=== PATIENT | male | born 1940 | race Caucasian/White ===

== ENCOUNTER 2016-08-13 11:28 | Emergency (ER) | payer MEDICARE ==
[~2016-08-13] VITALS: Ht 180.3 cm; Wt 95.5 kg
[~2016-08-13 11:28] MED LIST: CITA10TA9 PO; LISI-567 PO; OXYC-465 PO; PANT40TA3 PO; TEST200V IM
[2016-08-13 11:36] VITALS: BP 155/91; PULSE 88; RESP 16; O2SAT 98
--- NOTE | 2016-08-13 11:42 | ED.REPORT ---
HPI-Abd Pain M 40 and Over Date of Service Aug 13, 2016 ED Provider: History of Present Illness: abd pain for 3 to 4 days. today has a swelling on left side of abd. feels like gas pain. no fever. no nausea or vomiting, eating ok, had to do enema for a stool movemnt today and the last few days. primary care is lulu Antunez. 08/28 Nursing Notes Stated Complaint: ABDOMINAL PAIN Chief Complaint: Male Abdominal Pain Nursing Notes Reviewed: Yes Allergies: Coded Allergies: meperidine (Verified Allergy, Unknown, 04/09/16) Scheduled Citalopram (Citalopram) 10 Mg Tablet 10 MG PO DAILY Lisinopril (Lisinopril) 20 Mg Tablet 10 MG PO BID Pantoprazole DR (Pantoprazole DR) 40 Mg Tablet.dr 20 MG PO DAILY Testosterone Cypionate (Depo-Testosterone) 200 Mg/1 Ml Depoinj 200 MG IM [id number] Scheduled PRN oxyCODONE-Acetaminophen 7.5-325 mg (oxyCODONE-Acetaminophen 7.5-325 mg) 1 Each Tablet 1 TAB PO Q4H PRN PRN For Pain General Time Seen by MD: 11:41 Chief Complaint Abdominal pain Hx Obtained From: Patient Sudden in Onset?: No Symptom Duration: Since onset Past Medical History Past Medical History Reports: Hypertension, Denies: Asthma, Diabetes mellitus Past Surgical History denies Smoking History Former Smoker (quit 40 years ago) Social History Alcohol Use: 3-5 per day Drug Use: Denies drug use Occupation lives by self in a 1 story house Review of Systems Basic Review of Systems Eyes: Vision NL, No discharge Skin: No bruising, No rash, No itch Psychiatric: Normal thought content Physical Exam Initial Vital Signs Vital Signs (First) Date Time Temp Pulse Resp B/P Pulse Ox O2 Delivery O2 Flow Rate FiO2 08/13/16 11:36 36.5 88 16 155/91 98 Room Air Initial VS: Reviewed, Vital signs normal Head / Eyes: Atraumatic, Normocephalic, PERRL ENT: Mucous membranes moist, Conjunctiva normal, No scleral icterus Neck: Supple, Non-tender, Full range of motion Lymphatic: No lymphadenopathy Extremities: Vascular intact, Neuro intact, No swelling, No tenderness Skin: Warm, Dry, No cyanosis Neurologic: Alert, Oriented, Nonfocal Psychiatric: Mood/affect normal, Behavior normal, Normal thought content General/Constitutional: Awake, Alert, No acute distress, Well appearing, Well developed, Well hydrated, Well nourished, Cooperative, Not toxic appearing Appearance / Presentation: Positive: Appears older than age Respiratory / Chest: Atraumatic, Breath sounds NL, Breath sounds = bilat, No respiratory distress, No rales, No rhonchi, No wheezing Cardiovascular: Heart rate NL, Regular rhythm, Heart sounds NL, No gallop hypoactive bowel tones, patient with point tenderness on left side of abd where mild swelling is. No sign of cellulitis Back: Atraumatic, Inspection NL, Full range of motion Interpretation & Diagnostics Lab Results Interpretation Result Diagram: 08/13/16 1220 08/13/16 1220 Test 08/13/16 12:20 08/13/16 12:45 08/13/16 13:32 White Blood Count 5.4th/mm3 (3.8-10.1) Red Blood Count 5.09mil/mm3 (4.40-5.80) Hemoglobin 14.9g/dL (13.8-17.2) Hematocrit 42.9% (41.0-50.0) Mean Corpuscular Volume 84.3fL (81-100) Mean Corpuscular Hemoglobin 29.3pg (27.0-35.0) Mean Corpuscular Hemoglobin Concent 34.7% (32.0-37.0) Red Cell Distribution Width 13.4% (12.3-15.4) Platelet Count 175bil/L (150-400) Neutrophils (%) (Auto) 59.9% (40-74) Lymphocytes (%) (Auto) 26.0% (14-46) Monocytes (%) (Auto) 10.5% (4-12) Eosinophils (%) (Auto) 2.8% (0-5) Basophils (%) (Auto) 0.6% (0-3) Sodium Level 137mEq/L (134-144) Potassium Level 4.0mEq/L (3.5-5.2) Chloride Level 100mEq/L (97-108) Carbon Dioxide Level 21mmol/L (18-29) Blood Urea Nitrogen 12mg/dL (8-27) Creatinine 0.98mg/dL (0.76-1.27) Estimat Glomerular Filtration Rate 80mL/min (>59) Glucose Level 112mg/dL (60-99) Calcium Level 9.5mg/dL (8.5-10.1) Total Bilirubin 0.4mg/dL (0.0-1.2) Aspartate Amino Transf (AST/SGOT) 14U/L (0-50) Alanine Aminotransferase (ALT/SGPT) 14U/L (0-44) Alkaline Phosphatase 89U/L (25-160) Troponin T < 0.010ug/L (0.0-0.011) Total Protein 7.6g/dL (6.4-8.4) Albumin 4.3g/dL (3.4-5.0) Lactic Acid Level 1.2mmol/L (0.4-2.0) Hold Healy Top Tube Received (Received) Urine Color Yellow (YELLOW) Urine Appearance Clear (CLEAR,HAZY) Urine pH 5.5 (5.0-8.0) Urine Specific Selmer 1.025 (1.003-1.035) Urine Protein Negativemg/dL (NEG,TRACE) Urine Glucose (UA) Negativemg/dL (NEGATIVE) Urine Ketones Negativemg/dL (NEGATIVE) Urine Occult Blood Small (NEGATIVE) Urine Nitrite Negative (NEGATIVE) Urine Bilirubin Negative (NEGATIVE) Urine Urobilinogen Normalmg/dL (NORMAL) Urine Leukocyte Esterase Negative (NEGATIVE) Urine RBC 3-10/hpf (0-2) Urine WBC 0-5/hpf (0-5) Urine Epithelial Cells Occasional/hpf (NONE-MOD) Urine Crystals None seen (NONE SEEN) Urine Bacteria None/hpf (NONE-FEW) Urine Hyaline Casts None/lpf (NONE) Urine Granular Casts None seen (NONE SEEN) Urine Waxy Casts None seen (NONE SEEN) Urine Red Blood Cell Casts None seen (NONE SEEN) Urine White Blood Cell Casts None seen (NONE SEEN) Urine Mucus Present (None Seen) Urine Trichomonas None seen (NONE SEEN) Urine Yeast None (NONE SEEN) Urinalysis Comment None Urine Culture Reflexed Not indicated Lab Results Interpretation: urine is negative X-Ray Abdominal Interpretation ROCEDURE: X-RAY ACUTE ABDOMINAL SERIES ([id number]) INDICATIONS: ABDOMEN PAIN TECHNIQUE: One view chest and two views of the abdomen were acquired. COMPARISON: [facility], CR, ABD ACUTE SERIES, 04/20/2010, 19:32. FINDINGS: Surgical changes and devices: In the right upper quadrant are compatible with a prior cholecystectomy. Chest: Lungs are clear. Heart size is normal. There is aortic atherosclerosis. No pleural effusions. No pneumoperitoneum. Abdomen: Bowel gas pattern is normal. No air-filled distended small bowel loops are evident demonstrating air-fluid levels. No suspicious calcifications. Visualized solid organ contours appear normal. Bones: No suspicious bony lesions. Moderate to severe degenerative changes of the spine, sacroiliac joints, and bilateral hips are noted. IMPRESSION: 1. No bowel obstruction. 2. Negative chest. Dictated by: Chet Tubbs M.D. on 08/13/2016 at 12:13 Approved by: Chet Tubbs M.D. on 08/13/2016 at 12:17 CT Abd / Pelvis Interpretation PROCEDURE: CT ABDOMEN AND PELVIS WITH CONTRAST ([id number]) INDICATIONS: abd pain with left side swelling TECHNIQUE: After the administration of intravenous contrast, 5 mm thick sections acquired from the diaphragm to the symphysis. 5 mm coronal and sagittal reformats were acquired. For radiation dose reduction, the following was used: automated exposure control, adjustment of mA and/or kV according to patient size. COMPARISON: None. FINDINGS: Image quality: Excellent. ABDOMEN: Lung bases: Lung bases are clear. Heart size is normal. Solid organs: Liver and spleen are normal in size and enhancement. The liver demonstrates steatosis. There are scattered areas of predomina sub-centimeter low attenuation, with the larger foci most suggestive of cysts. The smaller foci are too small to definitively characterize and no priors are available for comparison. Gallbladder has been removed. Biliary system is non dilated. Pancreas enhances normally. No adrenal nodules. Kidneys demonstrate normal size and enhancement, without hydronephrosis. Peritoneum and bowel: Bowel loops are nonobstructive. There is focal thickening with surrounding inflammatory change and diverticula within the lateral descending colon. No free air. No organized abscess. Nodes and vessels: No retroperitoneal or mesenteric adenopathy by size criteria. Aorta and inferior vena cava are normal in size. Miscellaneous: No ventral hernias. PELVIS: Genitourinary: Bladder wall thickness is normal. Penile prosthesis is noted. Miscellaneous: No inguinal hernias or adenopathy. Bones: No suspicious bony lesions. No vertebral body compression fractures. IMPRESSION: 1. Descending colonic thickening with associated inflammatory change most consistent with colitis secondary to diverticulitis. Dictated by: Peyton Biswas M.D. on 08/13/2016 at 15:46 Approved by: Peyton Biswas M.D. on 08/13/2016 at 15:49 Re-Eval/Medical Decision Med Decision/Clinical Course 75 year old male presents for evualation of abd pain of 3 to 4 days duration. Comes in today because of localized swelling on left side of abd that is tender to touch. Labs are normal as is urine. CT indicates a colitis. ! dose of antibiotics given. Paitent is able to hold down liquids, vitals are normal, encouraged to return with any difficulty. No sign of cellulitis or hernia Discharge & Departure Primary Impression: Colitis Additional Impression: Diverticular disease of left colon Disposition: Home Vital Signs - All Vital Signs Date Time Temp Pulse Resp B/P Pulse Ox O2 Delivery O2 Flow Rate FiO2 08/13/16 18:58 86 18 152/73 100 Room Air 08/13/16 15:57 86 18 152/73 100 Room Air 08/13/16 15:11 79 15 152/82 99 Room Air 08/13/16 13:49 72 18 138/76 99 Room Air 08/13/16 11:36 36.5 88 16 155/91 98 Room Air Patient Instructions: Diverticulitis (ED) Additional Instructions: Your labs are normal. Your urine is good. The CAT scan shows that you have a colitis, which is on the left side at your pain site. Do a clear liqued for 2 to 3 days then advance as tolerated. Continue with oral antibiotics, levaquin and flagy. You have been able to hold down fluid in the ER. Please return if the pain increases or if you are unable to hold anything down. Use levaquin 750 mg daily for 10 days. Also flagyl 500 mg 3 times a day for 10 days. Can use hydrocodone 1 up to 2 times a day as needed for severe pain. This medication will increase constipation. Please add fiber to your diet. Please recheck with Lulu Antunez later this week. Return if you have any concerns. Referrals: Marcia Antunez PA-C (PCP) EDSupervising Provider for APC: Ariel Love MD copies to: Marcia Antunez PA-C, Sue ARNP Aug 13, 2016 11:42
[2016-08-13] MEDS ORDERED: 0.9% Sodium Chloride 1,000 ML IV ONE (12:00)
[2016-08-13 12:30] LABS: BASOPHILS % (AUTO) 0.6 % (0-3); EOSINOPHILS % (AUTO) 2.8 % (0-5); MONOCYTES % (AUTO) 10.5 % (4-12); Mean Corpuscular Hemoglobin 29.3 pg (27.0-35.0); Mean Corpuscular Volume 84.3 fL (81-100); NEUTROPHILS % (AUTO) 59.9 % (40-74); Platelet Count 175 bil/L (150-400)
[2016-08-13 13:12] LABS: TROPONIN T < 0.010 ug/L (0.0-0.011)
--- NOTE | 2016-08-13 13:18 | DRSVH ---
PROCEDURE: X-RAY ACUTE ABDOMINAL SERIES ([id number]) INDICATIONS: ABDOMEN PAIN TECHNIQUE: One view chest and two views of the abdomen were acquired. COMPARISON: [facility], , ABD ACUTE SERIES, 04/20/2010, 19:32. FINDINGS: Surgical changes and devices: In the right upper quadrant are compatible with a prior cholecystectomy . Chest: Lungs are clear. Heart size is normal. There is aortic atherosclerosis. No pleural effusion s. No pneumoperitoneum. Abdomen: Bowel gas pattern is normal. No air-filled distended small bowel loops are evident demonst rating air-fluid levels. No suspicious calcifications. Visualized solid organ contours appear normal . Bones: No suspicious bony lesions. Moderate to severe degenerative changes of the spine, sacroiliac joints, and bilateral hips are noted. IMPRESSION: 1. No bowel obstruction. 2. Negative chest. Dictated by: Chet Tubbs M.D. on 08/13/2016 at 12:13 Approved by: Chet Tubbs M.D. on 08/13/2016 at 12:17
[2016-08-13 13:49] VITALS: BP 138/76; PULSE 72; RESP 18; O2SAT 99
[2016-08-13 13:50] LABS: APPEARANCE,URINE CLEAR (CLEAR,HAZY); COLOR,URINE YELLOW (YELLOW); PH,URINE 5.5 (5.0-8.0)
[2016-08-13 13:51] LABS: OCCULT BLOOD,URINE SMALL (NEGATIVE); UROBILINOGEN,URINE NORMAL (NORMAL)
[2016-08-13 15:11] VITALS: BP 152/82; PULSE 79; RESP 15; O2SAT 99
--- NOTE | 2016-08-13 15:50 | DRSVH ---
PROCEDURE: CT ABDOMEN AND PELVIS WITH CONTRAST ([id number]) INDICATIONS: abd pain with left side swelling TECHNIQUE: After the administration of intravenous contrast, 5 mm thick sections acquired from the diaphragm to the symphysis. 5 mm coronal and sagittal reformats were acquired. For radiation dose reduction, the following was used: automated exposure control, adjustment of mA and/or kV according to patient siz e. COMPARISON: None. FINDINGS: Image quality: Excellent. ABDOMEN: Lung bases: Lung bases are clear. Heart size is normal. Solid organs: Liver and spleen are normal in size and enhancement. The liver demonstrates steatosis . There are scattered areas of predomina sub-centimeter low attenuation, with the larger foci most kerns ggestive of cysts. The smaller foci are too small to definitively characterize and no priors are avai lable for comparison. Gallbladder has been removed. Biliary system is non dilated. Pancreas enhance s normally. No adrenal nodules. Kidneys demonstrate normal size and enhancement, without hydronephr osis. Peritoneum and bowel: Bowel loops are nonobstructive. There is focal thickening with surrounding inf lammatory change and diverticula within the lateral descending colon. No free air. No organized absce ss. Nodes and vessels: No retroperitoneal or mesenteric adenopathy by size criteria. Aorta and inferior vena cava are normal in size. Miscellaneous: No ventral hernias. PELVIS: Genitourinary: Bladder wall thickness is normal. Penile prosthesis is noted. Miscellaneous: No inguinal hernias or adenopathy. Bones: No suspicious bony lesions. No vertebral body compression fractures. IMPRESSION: 1. Descending colonic thickening with associated inflammatory change most consistent with colitis sec ondary to diverticulitis. Dictated by: Peyton Biswas M.D. on 08/13/2016 at 15:46 Approved by: Peyton Biswas M.D. on 08/13/2016 at 15:49
[2016-08-13 15:57] VITALS: BP 152/73; PULSE 86; RESP 18; O2SAT 100
[2016-08-13] MEDS ORDERED: Piperacillin-Tazo 3.375 Gm Inj 3.375 GM in Dextrose 5% Minibag Plus 50 ML IV ONE (17:00)
[2016-08-13] MEDS ORDERED: Ondansetron 2 mg/mL 2 mL Inj IVPUSH ONE (17:10)
[2016-08-13 18:58] VITALS: BP 152/73; PULSE 86; RESP 18; O2SAT 100
== END 2016-08-13 18:59 | disposition home or self-care (01) ==
LOC: SED 11:28
DX: K52.9 Noninfective gastroenteritis and colitis, unspecified (principal); K57.30 Diverticulosis of large intestine without perforation or abscess without bleeding; I10 Essential (primary) hypertension; Z87.891 Personal history of nicotine dependence; Z79.899 Other long term (current) drug therapy; Z88.5 Allergy status to narcotic agent
CPT/HCPCS: 36415; 74022; 74177; 80053; 81000; 83605; 84484; 85025; 87040; 93005; 96361; 96365; 96375; 99285; J1885; J2405; J2543; J7030; Q9967